=== PATIENT | female | born 1985 | race Caucasian/White ===

== ENCOUNTER 2021-03-28 10:16 | Emergency (ER) | payer SELFPAY ==
[~2021-03-28] VITALS: Ht 177.8 cm; Wt 85.3 kg
[2021-03-28] MEDS ORDERED: cloNIDine HCL 0.1 MG TAB ONE (10:19)
[2021-03-28] MEDS ORDERED: cloNIDine HCL 0.1 MG TAB PO ONE (10:30)
[2021-03-28 11:00] LABS: Basophils # (auto) 0.1 10 ^3/uL (0-0.2); Basophils % (auto) 0.7 % (0.0-2.0); Eosinophils # (auto) 0.2 10 ^3/uL (0-0.8); Eosinophils % (auto) 2.6 % (0.0-7.0); Hematocrit 44.8 % (36.0-46.0); Lymphocytes # (auto) 1.6 10 ^3/uL (0.4-5.4); Lymphocytes % (auto) 17.6 % (10.0-50.0); Mean Corpuscular Hemoglobin 29.3 pg (28.0-32.0); Mean Corpuscular Hgb Conc. 33.5 g/dL (32.0-36.0); Mean Corpuscular Volume 87.6 fL (80.0-100.0); Monocytes # (auto) 0.5 10 ^3/uL (0-1.3); Monocytes % (auto) 5.7 % (0.0-12.0); Neutrophils # (auto) 6.7 10 ^3/uL (1.6-8.6); Neutrophils % (auto) 73.4 % (37.0-80.0); Platelet Count (auto) 419 10^3/uL (140-450); Red Blood Cells 5.11 10^6/uL (4.0-5.20); Red Cell Distribution Width 14.5 % (11.8-14.3); White Blood Cell 9.1 10^3/uL (4.4-10.8)
[2021-03-28 11:16] LABS: Albumin 3.4 g/dL (3.4-5.0); Anion Gap 5 (5-15); Calcium 8.7 mg/dL (8.5-10.1); Carbon Dioxide 26 mmol/L (21-32); Chloride 108 mmol/L (98-107); Glucose 77 mg/dL (74-106); Sodium 139 mmol/L (136-145)
[2021-03-28 11:24] LABS: Alanine Aminotransferase 16 U/L (13-56); Alkaline Phosphatase 56 U/L (45-117); Aspartate Aminotransferase 14 U/L (15-37); Bilirubin, Total 0.4 mg/dL (0.2-1.0); GFR African American 117 mL/min; GFR Non-African American 96 mL/min; Total Protein 7.3 g/dL (6.4-8.2)
[2021-03-28] MEDS ORDERED: LABETALOL HCL 5 MG/ML 4ML SYRINGE IV ONE (12:15)
[2021-03-28 12:20] LABS: BUN/Creatinine Ratio 18.1; Blood Urea Nitrogen 13 mg/dL (7-18)
[2021-03-28 16:55] LABS: Urine Bacteria NONE SEEN /hpf (None Seen); Urine Blood Negative /uL (Negative); Urine Hyaline Cast FEW /lpf (0 - 2); Urine Mucus FEW (None Seen); Urine Specific Gravity 1.025 (1.001-1.035); Urine WBC 2 /hpf (0 - 5)
[2021-03-28 17:45] VITALS: BP 153/90
== END 2021-03-28 17:47 | disposition home or self-care (01) ==
LOC: ER 10:16
DX: I10 Essential (primary) hypertension (principal); F17.210 Nicotine dependence, cigarettes, uncomplicated
CPT/HCPCS: 36415; 71045; 80053; 81001; 81025; 83735; 84484; 85025; 93005; 96374; 99285; J3490